=== PATIENT | female | born 1985 ===

== ENCOUNTER 2022-12-11 09:53 | Outpatient (CLI) | payer OTHER | END 2022-12-11 09:55 | disposition home or self-care (01) | LOC: SONOGRAMA 09:53 | PROVIDERS: ATTEND Pathology Anatomic Pathology & Clinical Pathology | DX: C08.0 Malignant neoplasm of submandibular gland (principal); D34 Benign neoplasm of thyroid gland; E04.9 Nontoxic goiter, unspecified ==